=== PATIENT | male | born 1960 | race Caucasian/White ===

== ENCOUNTER 2017-07-13 00:30 | Day surgery (SDC) | payer MEDICARE, OTHER ==
[2014-05-23 08:38] VITALS: Ht 167.6 cm; Wt 94.8 kg
[~2017-07-13] VITALS: Ht 167.6 cm; Wt 94.8 kg
[~2017-07-13 00:30] MED LIST: ASCO-191 PO; ASPI-1471 PO; ATOR20TA22 PO; BIS10S PR; CALC1TAB58 PO; CLON-1 PO; DEXL60CA6 PO; DULO60CA51 PO; ENO40I SQ; FISH1CAP15 PO; HYDR-318 PO; IBUP200C74 PO; IBUP800T37 PO; LISI20TA29 PO; LORA-733 PO; LORA-802 PO; METXL50 PO; MOM PO; MONT10TA PO; MULT-1335 PO; OMEP1CAP27 PO; OMEP40CA48 PO; PER PO; POTA2.5T7 PO; TRIA-20 PO; VALS320T12 PO
--- NOTE | 2017-07-13 10:19 | HISTORY AND PHYSICAL ---
DATE OF ADMISSION: July 13, 2017 IDENTIFICATION/CHIEF COMPLAINT Eddy is a 57-year-old gentleman with a chief complaint of right shoulder injury. HISTORY OF PRESENT ILLNESS The patient stumbled and fell through drywall and injured his right shoulder, sustaining complete dislocation requiring emergency room reduction. He has pseudoparalysis to the arm related to a massive cuff tear. Surgery is indicated to relieve pain, promote stability and restored function. PAST MEDICAL HISTORY Notable for history of coronary artery disease, irregular heartbeat, hypertension, acid reflux disease. PAST SURGICAL HISTORY Notable for a couple of sinus operations, shoulder and hip replacement. ALLERGIES No known drug allergies. He has hayfever. CURRENT MEDICATIONS * Metoprolol 25 p.o. q.day. * Lisinopril one per day. * Triamterene hydrochlorothiazide one per day. * Aspirin 81 mg p.o. q.day. * Lipitor 20 mg p.o. q.day. * Omeprazole 40 mg p.o. q.day. * Clonazepam 1 mg at bedtime as needed. FAMILY HISTORY Notable for hypertension in father, coronary artery disease in mother, and rheumatoid arthritis in father. SOCIAL HISTORY Negative for tobacco use. He drinks about a six-pack of beer per week per his report, denies abuse. REVIEW OF SYSTEMS Negative. PHYSICAL EXAMINATION GENERAL: This is a well-developed, well-nourished male who appears stated age. HEENT: Normocephalic, atraumatic. NECK: Supple. LUNGS: Clear. HEART: Regular. ABDOMEN: Soft. ORTHOPEDIC EXAM: Eddy has no active forward elevation or abduction of his shoulder. He has significant external rotation lag sign. He is weak in all directions. Sensibility is altered on the posterior aspect of the deltoid and somewhat into the axillary nerve distribution. Distal neurologic function is intact. He can activate or fire his anterior middle and posterior deltoid, but again with no antigravity elevation. His passive motion is reasonable. RADIOGRAPHIC DATA Radiographs demonstrate subcoracoid dislocation with satisfactory reduction. MRI demonstrates a massive cuff tear involving the supraspinatus and infraspinatus with retraction and his biceps torn. He has probable full thickness subscap tear as well. ASSESSMENT Right shoulder acute versus acute on chronic rotator cuff tear with pseudoparalysis of the shoulder. PLAN I do not think this has any reasonable change of responding to conservative care , and he has made limited improvement over the several weeks since his injury. I have recommended arthroscopic and possibly open repair of this cuff. Nature of the procedure, risks, benefits, the anticipated rehab course were reviewed. Risks include but not are limited to , major medical or anesthetic complication, infection, neurovascular injury, blood transfusion, stiffness, scarring, retear, persistent or recurrent pain, weakness or limitation of function, need for additional surgery and other unforeseen. He understands and wishes to proceed. Signed permit is placed in the chart. No guarantees are given or implied. MARIS
[2017-07-13] MEDS ORDERED: ROPIVACAINE 0.2% 20 ML VIAL ONE (14:48)
[2017-07-13] MEDS ORDERED: METOPROLOL TART 5 MG/5 ML VIAL IVP ONE (14:55)
[2017-07-13 15:00] VITALS: BP 170/107
[2017-07-13] MEDS ORDERED: DEXAMETHASONE SOD PHOS 10MG/ML ONE (15:03)
[2017-07-13] MEDS ORDERED: ONDANSETRON 4 MG/2 ML VIAL ONE (15:03)
[2017-07-13] MEDS ORDERED: PROPOFOL EMUL(*) 10MG/ML 20 ML 40 ML ONE (15:03)
[2017-07-13] MEDS ORDERED: ROPIVACAINE 0.5% 20 ML VIAL ONE (15:06)
[2017-07-13] MEDS ORDERED: ceFAZolin(*) 2GM/D5W 50ML 50 ML IVPB ONE (15:30)
[2017-07-13] MEDS ORDERED: NORMOSOL R SOLN(*) 1000 ML BAG 1,000 ML IV PRN (15:30)
[2017-07-13] MEDS ORDERED: MIDAZOLAM 2 MG/2 ML VIAL ONE (15:30)
[2017-07-13] MEDS ORDERED: CELECOXIB 200 MG CAP PO ONE (15:30)
[2017-07-13] MEDS ORDERED: MIDAZOLAM 2 MG/2 ML VIAL IVP PRN (15:30)
[2017-07-13] MEDS ORDERED: LIDOCAINE/SOD BICARB 8.4% SYR ID ONE (15:30)
[2017-07-13] MEDS ORDERED: SUCCINYLCHOL CHL 200MG/10ML VL ONE (16:00)
[2017-07-13] MEDS ORDERED: ROCURONIUM BROM 10 MG/ML 10 ML ONE (16:00)
[2017-07-13] MEDS ORDERED: LABETALOL HCL 100 MG/20ML VIAL ONE (16:16)
[2017-07-13] MEDS ORDERED: fentaNYL CITR 100 MCG/2 ML AMP ONE ×2 (17:36→20:04)
[2017-07-13] MEDS ORDERED: METOPROLOL TART 5 MG/5 ML VIAL ONE ×2 (17:40→18:11)
[2017-07-13] MEDS ORDERED: LIDOCAINE MPF 1% 5 ML VIAL ONE (18:12)
[2017-07-13] MEDS ORDERED: SUGAMMADEX SOD 200 MG/2 ML SDV ONE (19:07)
[2017-07-13] MEDS ORDERED: ESMOLOL 10 MG/ML 10ML SDV ONE (19:07)
[2017-07-13] MEDS ORDERED: OXYC-865 PO (19:46)
[2017-07-13] MEDS ORDERED: KETOROLAC 30 MG/ML VIAL ONE (19:54)
[2017-07-13] MEDS ORDERED: oxyCODONE/ACETAMIN 5/325MG TH 2 TAB/BOTTLE PO ONE (20:15)
[2017-07-13 20:20] VITALS: BP 134/78
[2017-07-13 20:30] VITALS: BP 125/84
[2017-07-13 20:49] VITALS: BP 119/84
[2017-07-13 20:50] VITALS: BP 125/79
[2017-07-13] MEDS ORDERED: oxyCODONE/ACETAMIN 5/325MG TH 2 TAB/BOTTLE ONE (21:19)
--- NOTE | 2017-07-14 21:51 | OPERATIVE REPORT 1 ---
EVENT DATE: July 13, 2017 SURGEON: Bandar Larry MD ANESTHESIOLOGIST: Seven Bah MD ANESTHESIA: Scalene block, followed by general anesthesia. PREOPERATIVE DIAGNOSES 1. Right shoulder rotator cuff massive tear status post anterior dislocation. 2. Long-head biceps rupture. POSTOPERATIVE DIAGNOSES 1. Right shoulder rotator cuff massive tear status post anterior dislocation. 2. Long-head biceps rupture. PROCEDURES PERFORMED 1. Right shoulder arthroscopic repair of massive posterosuperior rotator cuff tear. 2. Extensive debridement including synovium, labrum, biceps remnant. 3. Subacromial decompression with acromioplasty. 4. Open repair of subscapularis, -22 modifier. INDICATIONS Eddy is a 57-year-old gentleman. He fell through drywall, sustaining an anterior dislocation. He has pseudi-paralysis his arm. MRI evidence of massive cuff tear. Surgery is indicated in an attempt to restore function, relieve pain, and improve his ability to use the arm. DESCRIPTION OF PROCEDURE Patient was taken to the operating room and placed supine on the operating table. Scalene block was administered by the anesthesiologist. General anesthesia was induced. Antibiotics were administered IV. Patient was positioned in the left lateral decubitus on a well-padded crow bag. All bony prominences, superficial nerves were well padded. Right shoulder girdle and upper extremity were prepped and draped in the usual sterile fashion for shoulder arthroscopy. The arm was suspended in STaR Sleeve traction. Standard posterior portals were created with the blunt trocar. Arthroscopic cannula was centered in the joint. Lactated Ringer's was used for preparation into his sheath. The Veress needle was placed outside to the rotator interval. Diagnostic arthroscopy was performed. There was rupture of the anteroinferior capsule and some labral tearing and fraying. This was debrided with a shaver. The long head of the biceps is ruptured. The stump is debrided with a shaver. The subscapularis is torn. The leading edge is dissected free of scar and tagged with multiple stitches with a Scorpion needle to facilitate identification and mobilization. This does not mobilize easily. Viewing antierior to posterior confirms the above findings. No additional findings are noted. The glenohumeral articular surfaces are generally in good condition. The scope is redirected. Subacromial lateral working portal is established. A very careful, meticulous dissection is performed to remove bursal leaders and early forming scar tissue from the intact cuff. Cuff is tagged whenever to identify and mobilize progressively by pulling on the traction stitches and dissecting free of scar and developing the interval between the labrum and the rotator cuff. In this fashion, the entire posterosuperior cuff is mobilized. The footprint is debrided over the surface down to a margi, and then a anuradha is used to freshen this down to punctate bleeding bone. Three medial row anchors are placed. These are 5.5 [place]al[place]. Sutures are passed to a depth of 1.5 cm through the leading edge of the cuff from posterior to anterior at the appropriate interval using horizontal mattress configuration. After all sutures are passed, these are tagged with SMC knots back to the three reverse posterior alternating half-hitches. Suture limbs are left long. These are then brought over to two 5.5 lateral row Daniels and Nephew anchors using a diamondback configuration, crisscrossing over the tendon to create a transosseous equivalent one row repair. A nice, tension-free rotator repair is achieved down to bone. Next, an attempt is made arthroscopically to dissect free the subscapularis; however, this is not mobilizing easily. There is significant swelling at this point in the case, and due to the critical nature of the subscapularis repair, I felt the patient is best served with open repair to assure satisfactory repair of the subscapularis. The most anterior incision is extended distally toward the axilla. Dissection is carried down through the subcutaneous tissue, and the deltopectoral interval is identified. Blunt dissection is performed, taking the cephalic vein laterally with the deltoid. A gloved finger is introduced to break up bursal adhesions and open up this interval beneath the coracoid. Leon retractor is placed. The previously placed tagged stitches in the subscapularis are identified, brought out through the wound, and used along with a Baker to mobilize the subscapularis. A Baker was placed between the subscapularis and the labrum anteriorly. A gloved finger was used to dissect down anteriorly, taking care to avoid injury to the axillary neurovascular bundle. Two medial row anchors are placed at the margin of the lesser tuberosity footprint after freshening this down to bleeding bone with a rongeur. Sutures are passed with the Scorpion in a horizontal mattress configuration from superior to inferior along the course of the tendon at a depth of about 1.2 to 1.5 cm. After passing all sutures, these were tied ____( 272) SMC knots backed up with three reverse posterolateral alternating half- hitches. The suture limbs were left long. One limb of each pair was then brought to a transosseous equivalent double row repair, anchor placed in the biceps groove. This was 5.5 Daniels and Nephew lateral row anchor. Sutures were tensioned, compressed in the subscapularis, and transosseous equivalent double row repair technique, and then the suture anchors deployed. All remaining suture limbs were trimmed. Wound is copiously lavaged. Hemostasis assured. I should note prior to proceeding with the open procedure, some spurs in the undersurface of the acromion are debrided to create space. Formal release of the CA is not performed, just a smoothing procedure on the undersurface of the acromion. At the completion of the procedure, wound is copiously lavaged. The deltopectoral interval is allowed to fold back together. The cephalic vein is in good condition. Derm is closed with 3-0 Vicryl. Skin is closed 4-0 Monocryl. Xeroform and 4 x 4's applied for a dry, sterile dressing. The patient is placed in an UltraSling. Plan is for massive cuff repair rehab protocol. We are going to go six weeks of phase 1, wean from the sling at eight, no strengthening until three months postop. Unrestricted use of the arm is anticipated in six months postop. [facility]
== END 2017-07-13 20:20 | disposition home or self-care (01) ==
LOC: OR 00:30
PROVIDERS: ATTEND Orthopaedic Surgery
DX: M75.121 Complete rotator cuff tear or rupture of right shoulder, not specified as traumatic (principal); S46.211A Strain of muscle, fascia and tendon of other parts of biceps, right arm, initial encounter
CPT/HCPCS: 29826; 29827; 76942; A9270; C1713; J0330; J1100; J1885; J2001; J2250; J2405; J2704; J2795; J3010; J3490; L3670; J0690

== ENCOUNTER 2018-05-03 01:43 | Observation (INO) | payer MEDICARE, OTHER ==
--- NOTE | 2018-04-26 11:32 | NUR ---
PT VERY CONCERNED ABOUT BEING ABLE TO GET HERE FOR SURGERY, PT STATED "STILL TRYING TO FIGURE EVERYTHING OUT, NOT SURE I WILL BE ABLE TO MAKE IT". INFORMED PT THAT HE WILL STAY ON THE DATE SCHEDULED, AND TO LET US KNOW SOON POSSIBLE IF HE WILL NEED TO RESCHEDULE. PT STATED UNDERSTANDING.
[2018-05-02 13:10] LABS: INR 0.92
--- NOTE | 2018-05-02 14:15 | HISTORY AND PHYSICAL ---
DATE OF PREOP: May 03, 2018 IDENTIFICATION/CHIEF COMPLAINT Eddy is a 56-year old gentleman with a chief complaint of right knee pain. HISTORY OF PRESENT ILLNESS Patient has a longstanding history of knee arthritis, progressively painful and debilitating and refractory to conservative care. Surgery is indicated to relieve symptoms after failure of nonoperative measures. PAST MEDICAL HISTORY * History of heart disease, * Irregular heartbeat. * Hypertension. * Remote history of bronchitis. * Hypercholesterolemia. * Acid reflux disease. PAST SURGICAL HISTORY * Prior right knee ACL surgery. * Multiple clean-up scopes in the right knee. * Left hip replacement. * Shoulder replacement. * Rotator cuff repair. ALLERGIES No known drug allergies. He does have hay fever. CURRENT MEDICATIONS * Metoprolol 50 mg p.o. every day. * Lisinopril 1 tablet p.o. every day. * Triamterene. * Hydrochlorothiazide1 p.o. every day. * Aspirin 81 mg p.o. every day. * Lipitor 20 mg p.o. every day. * Omeprazole 40 mg p.o. every day. * Flecainide 100 mg p.o. p.r.n. * Flonase p.r.n. FAMILY HISTORY Notable for father with arthritis and hypertension, mother with heart disease. SOCIAL HISTORY Negative for rare cigarette smoking. He drinks beer occasionally, denies abuse. REVIEW OF SYSTEMS Negative. PHYSICAL EXAMINATION GENERAL: Well-developed, well-nourished male who appears his stated age. HEENT: Normocephalic, atraumatic. NECK: Supple. LUNGS: Clear. ABDOMEN: Soft . ORTHOPEDIC EXAMINATION Right knee has well-healed surgical scars consistent with his prior surgery. He has a small effusion. He is stiff at the end range. He has a small flexion contracture. His extensor function is intact. His knee is ligamentously grossly stable. Calves are nontender. Neurovascular function is intact. RADIOLOGY Radiographs demonstrate end-stage DJD. ASSESSMENT Right knee end-stage degenerative joint disease, progressively painful and debilitating and refractory to conservative care. PLAN Per patient request, we will proceed with total knee arthroplasty. The nature of this procedure, risks and benefits, nonoperative alternatives and anticipated rehab course were described. Risks of the procedure include, but are not limited to, , major medical or anesthetic complications, infection, neurovascular, blood transfusions, stiffness, scarring, fracture, tendon rupture, instability, implant loosening, migration or failure, persistent or recurrent pain, need for additional surgery and other unforeseen. He understands and wishes to proceed. Signed permits are placed in the chart. No guarantees given or implied. MARIS
--- NOTE | 2018-05-02 16:05 | RADIOLOGY IMAGING REPORT ---
FACILITY: [facility] PATIENT NAME: Enrike Luevano : 1960 MR: [id number] V: [id number] EXAM DATE: ORDERING PHYSICIAN: ENRIKE WHITLOCK TECHNOLOGIST: Location: [facility] Patient: Enrike Luevano : 1960 Visit/Account:[id number] Date of Sevice: 05/02/2018 Exam type: KNEE 3 VIEW RIGHT History: PREOP RIGHT TOTAL KNEE Comparison: None. Findings: There is severe narrowing of the lateral compartment of the right knee moderate narrowing of the medi al compartment and moderate severe narrowing of patellofemoral compartment. There are postsurgical c hanges from a prior ACL repair. There are numerous loose bodies seen within the right knee joint. IMPRESSION: 1. Severe osteoarthritic changes of the right knee Report Dictated By: Gisela Reyes MD at 05/02/2018 3:57 PM Report E-Signed By: Gisela Reyes MD at 05/02/2018 4:00 PM [id number]
[2018-05-03] VITALS (12 sets, daily range): BP systolic 94–123; BP diastolic 33–82; Ht 170.2 cm; Wt 94.8 kg
[~2018-05-03] VITALS: Ht 170.2 cm; Wt 94.8 kg
[~2018-05-03 01:43] MED LIST changes: +FLE100 PO; +FLUT16SP19 NS; +MULT-27 PO; +OMEG-23 PO; +OXYC-865 PO
[2018-05-03] MEDS ORDERED: VANCOMYCIN 1 GM VIAL ONE (07:02)
[2018-05-03] MEDS ORDERED: TRANEXAMIC AC 1000 MG/10ML SDV 1,000 MG in DEXTROSE 5% 50 ML BAG 50 ML IV ONE (07:30)
[2018-05-03] MEDS ORDERED: ceFAZolin(*) 2GM/D5W 50ML 50 ML IVPB ONE (07:30)
[2018-05-03] MEDS ORDERED: LIDOCAINE/SOD BICARB 8.4% SYR ID ONE (07:30)
[2018-05-03] MEDS ORDERED: CELECOXIB 200 MG CAP PO ONE (07:30)
[2018-05-03] MEDS ORDERED: PREGABALIN 150 MG CAPSULE PO ONE (07:30)
[2018-05-03] MEDS ORDERED: NORMOSOL R SOLN(*) 1000 ML BAG 1,000 ML IV PRN ×2 (07:30→12:15)
[2018-05-03] MEDS ORDERED: ACETAMINOPHEN 500 MG TAB PO ONE (07:30)
[2018-05-03] MEDS ORDERED: MIDAZOLAM 2 MG/2 ML VIAL IVP PRN (07:30)
[2018-05-03] MEDS ORDERED: ROPIVACAINE/EPI/CLONIDINE/KET 50 ML SYRINGE INJ ONE (07:30)
[2018-05-03] MEDS ORDERED: LIDOCAINE MPF 1% 5 ML VIAL ONE (08:17)
[2018-05-03] MEDS ORDERED: ONDANSETRON 4 MG/2 ML VIAL ONE (08:17)
[2018-05-03] MEDS ORDERED: fentaNYL CITR 100 MCG/2 ML AMP ONE (08:17)
[2018-05-03] MEDS ORDERED: KETAMINE HCL-NS 50 MG/5 ML SYR ONE (08:17)
[2018-05-03] MEDS ORDERED: PROPOFOL EMUL(*) 10MG/ML 20 ML 20 ML ONE (08:17)
[2018-05-03] MEDS ORDERED: DEXAMETHASONE SOD 4 MG/ML VIAL ONE (08:17)
[2018-05-03] MEDS ORDERED: ePHEDrine 25 MG/5 ML DISP.SYR IVP ONE (09:41)
[2018-05-03] MEDS ORDERED: LACTATED RINGER 3000 ML BAG IR ONE (10:11)
[2018-05-03] MEDS ORDERED: FLUSH 10 ML SYR IVP PRN (12:15)
[2018-05-03] MEDS ORDERED: ACETAMINOPHEN 325 MG TAB PO PRN (12:15)
[2018-05-03] MEDS ORDERED: diphenhydrAMINE 50 MG/ML VIAL IVP PRN (12:15)
[2018-05-03] MEDS ORDERED: ZOLPIDEM TARTRATE 5 MG TAB PO PRN (12:15)
[2018-05-03] MEDS ORDERED: BENZOCAINE/MENTHOL 1 EACH LOZG PO PRN (12:15)
[2018-05-03] MEDS ORDERED: PROMETHAZINE 25 MG/ML 1 ML AMP IVP PRN (12:15)
[2018-05-03] MEDS ORDERED: BISACODYL 10 MG SUPP PR PRN (12:15)
[2018-05-03] MEDS ORDERED: FLUTICASONE PROP 0.05% 16 GM PRN (13:55)
[2018-05-03] MEDS ORDERED: FLECAINIDE ACETATE 100 MG TAB PO PRN (13:55)
--- NOTE | 2018-05-03 14:03 | Hospitalist Consultation ---
History of Present Illness Requesting Physician Dr. Larry Reason for Consult Medical Management Chief Complaint s/p right total knee replacement History of Present Illness He was admitted s/p right total knee replacement. It is reported the surgery went well and without complication. History Problems: (1) PAROXYSMAL ATRIAL FIBRILLATION Status: Chronic (2) HTN (hypertension) Status: Chronic (3) GERD (gastroesophageal reflux disease) Status: Chronic (4) Anxiety Status: Chronic Home Meds Reported Medications Fluticasone Prop 50 Mcg Ns (FLONASE 50 MCG NS) 16 Gm [place].susp, 2 SPRAYS NS QDAY PRN for CONGESTION, BOT 04/26/18 Flecainide Acetate (FLECAINIDE ACETATE) 100 Mg Tab, 100 MG PO DAILY PRN for IRREGULAR HEARTRATE, TAB 04/26/18 Mu-Vits-Min Th/Lycopene/Lutein (CENTRUM SILVER TABLET) 1 Each Tablet, 1 EACH PO DAILY 04/26/18 Coamo-3 Fatty Acids/Fish Oil (FISH OIL 1,000 MG SOFTGEL) 1 Each Capsule, 1 EACH PO DAILY, CAPSULE 04/26/18 Ibuprofen (IBUPROFEN) 800 Mg Tablet, 1 TAB PO Q8H PRN for PAIN, TAB 07/12/17 Omeprazole (OMEPRAZOLE) 40 Mg Capsule.dr, 40 MG PO QDAY, CAP 07/12/17 Atorvastatin Calcium (LIPITOR) 20 Mg Tablet, 1 TAB PO QDAY, TAB 07/12/17 Aspirin (ASPIR 81) 81 Mg Tablet.dr, 81 MG PO QHS, TAB 07/12/17 Calcium Carb & Cit/Vitamin D3 (CALCIUM + VITAMIN D3 CAPLET) 1 Each Tablet.er, 1 EACH PO DAILY 05/16/14 Clonazepam (KLONOPIN) 1 Mg Tablet, 1 MG PO DAILY 05/16/14 Lisinopril (LISINOPRIL) 20 Mg Tablet, 20 MG PO QDAY, TAB 05/16/14 Triamterene/Hydrochlorothiazid (Triamterene/Hctz 37.5/25 Tb) 1 Each Tablet, 1 EACH PO DAILY, 0 Refills 03/20/11 Metoprolol Succinate (Toprol Xl) 50 Mg Tabcr, 50 MG PO QDAY, 0 Refills 03/20/11 Discontinued Reported Medications Oxycodone Hcl/Acetaminophen (PERCOCET 5-325 MG TABLET) 1 Each Tablet, 1-2 EACH PO Q4-6H PRN for PAIN, #50 TAB 0 Refills 07/13/17 Montelukast Sodium (SINGULAIR) 10 Mg Tablet, 1 TAB PO QDAY, TAB 07/12/17 Ascorbic Acid (VITAMIN C) 1,000 Mg Tablet, 1000 MG PO DAILY 05/16/14 Fish Oil/Dha/Epa (FISH OIL 1,200 MG FISH OIL) 1 Each Capsule, 1 EACH PO DAILY, CAPSULE 05/16/14 Allergies: Coded Allergies: hydrocodone (Verified Adverse Reaction, Mild, ITCHING, 07/12/17) Uncoded Allergies: HAYFEVER (Allergy, Unknown, UNKNOWN, 09/09/11) Patient History: FH: arthritis FATHER FH: heart disease MOTHER FH: hypertension FATHER Hx Smoking: Yes (SOCIAL SMOKER) Smoking Status: Current: Some Days Smoker Caffeine Intake: Coffee Caffeine/Cups Per Day: 2 CUPS PER DAY Hx Alcohol Use: Yes Alcohol Used: Beer Hx Substance Use Disorder: No Social Drug Use: Occasional Social Drugs: Marijuana Review of Systems All Systems Reviewed/Normal: Yes, Except as Noted Exam Vital Signs Vital Signs Date Time Temp Pulse Resp B/P (MAP) Pulse Ox O2 Delivery O2 Flow Rate FiO2 05/03/18 13:22 98.0 79 16 110/74 (86) 94 Nasal Cannula 2.0 General Appearance: Alert, Awake, No Acute Distress, Afebrile Neuro: No Gross deficits Cardiovascular: Regular Rate and Rhythm Respiratory: No Respiratory Distress, Clear to Auscultation Psych: Alert & Oriented X3, Appropriate Mood & Affect Assessment and Plan Problems: (1) Status post total right knee replacement Status: Acute Assessment & Plan: Followed by Dr. Larry. He will be placed on Aspirin for DVT prophylaxis. He has no history of DVT or PE. (2) HTN (hypertension) Status: Chronic Assessment & Plan: He is on chronic treatment with Lisinopril, Metoprolol, and Triamterene/ HCTZ. The Metoprolol and Lisinopril have been restarted with hold parameters. (3) GERD (gastroesophageal reflux disease) Status: Chronic Assessment & Plan: He is on chronic treatment with Omeprazole. He will receive Protonix during admission. (4) Anxiety Status: Chronic Assessment & Plan: He is on chronic treatment with Clonazepam. This will be held while receiving Valium. (5) PAROXYSMAL ATRIAL FIBRILLATION Status: Chronic Assessment & Plan: He does take Flecainide as needed for palpitations. He reports he does not use this often. (6) CAD (coronary artery disease) Status: Chronic Assessment & Plan: He is on chronic treatment with baby aspirin. This will be held while receiving full strength ASA. Venous Thromboembolism Antithrombotics Is Pt On Any Antithrombotics?: No Problem Qualifiers (1) HTN (hypertension): Hypertension type: essential hypertension Qualified Codes: I10 - Essential (primary) hypertension SOREN JOHNSON May 03, 2018 14:03
--- NOTE | 2018-05-03 14:18 | RADIOLOGY IMAGING REPORT ---
[place] [facility] [place] NAME: Enrike Luevano : 1960 MR: [id number] V: [id number] EXAM DATE: ORDERING PHYSICIAN: ENRIKE WHITLOCK TECHNOLOGIST: Location: [facility] - [place], [place] Patient: Enrike Luevano : 1960 Visit/Account:[id number] Date of Sevice: 05/03/2018 KNEE LIMITED RIGHT HISTORY: POST OP RIGHT TKA Additional history: None COMPARISON: Comparison made to preoperative study which demonstrates a advanced right knee arthrosis . FINDINGS: Interval total right knee arthroplasty. Orthopedic hardware unremarkable. Joint space reconstituted data. Normal anatomic alignment. Iatrogenic air seen in the joint. IMPRESSION: Status post right total knee arthroplasty unremarkable in appearance. Report Dictated By: Charles Rene MD at 05/03/2018 2:11 PM Report E-Signed By: Charles Rene MD at 05/03/2018 2:14 PM WSN:[email or web address]
--- NOTE | 2018-05-03 14:32 | OPERATIVE REPORT 1 ---
EVENT DATE: May 03, 2018 SURGEON: Bandar Larry MD ANESTHESIOLOGIST: David Caba MD ANESTHESIA: General plus spinal. TRAFFIC OFFICER: David Cervantes PA-C PREOPERATIVE DIAGNOSIS Right knee degenerative joint disease. POSTOPERATIVE DIAGNOSIS Right knee degenerative joint disease. PROCEDURE PERFORMED Right total knee arthroplasty. ESTIMATED BLOOD LOSS Minimal. DRAINS None. SPECIMENS None. COMPLICATIONS None apparent. TOURNIQUET TIME 77 minutes. IMPLANTS USED [place] Tri[employer] knee system, a 4 RIGHT PS femur, a 5 standard tibial baseplate, a 36 mm universal symmetric all polyethylene patella button, 13 mm PS tibial tray. INDICATIONS Bandar is a 58-year-old gentleman status post remote ACL reconstruction and additional operations who has severe posttraumatic arthritis progressively painful, debilitating and refractory to conservative measures. Surgery is indicated to relieve symptoms after failure of nonoperative measures. DESCRIPTION OF PROCEDURE The patient was taken to the operating room and placed supine on the operating table. General anesthesia was induced. Spinal block was administered by the anesthesiologist. Antibiotics and TXA were administered IV. The right lower extremity was prepped and draped in the usual sterile fashion for knee arthroplasty. The limb was exsanguinated with an Esmarch bandage. The tourniquet was inflated to 250 mmHg. The old anterior curvilinear medial parapatellar incision is opened and extended a bit proximally. Dissection is carried down through the skin and scar tissue to the extensor mechanism. Full thickness dissection is carried far enough to allow medial parapatellar arthrotomy be performed. This knee is extremely stiff and scarred in anteriorly. Simple eversion of the patella is difficult so the fat pad is dissected away and additional spur removed on the lateral aspect of the patella and eventually the patella can be everted and the knee flexed safely without jeopardizing the extensor mechanism. The subperiosteal tissue is released on the medial aspect to start balancing just around the capsule for 1 cm. This was carried around on the lateral side as well. Subsequently, step-drill was used to enter the distal femur. Alignment guide was used to engage the isthmus. Cut set for 5 degrees valgus over the anatomic axis. 10 mm resection block was applied and pinned. Cut was made with an oscillating saw. The AP sizing guide was applied to the distal femoral cut and positioned for 3 degrees of rotation relative to the posterior condyles. 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 Therefore, transepicondylar axis is brought forward over the Yayo's line and this is used for making the drill holes for the sizing guide to assure the component is not internally rotated. The size 4 was optimal without risk of notching. Four-in-one cutting block was applied. Anterior, posterior, posterior chamfer and anterior chamfer cuts were made respectively. A PS block was applied and centered mediolateral and the bone was removed from the box. The trial femur has nice [id number] fit. Attention was turned to tibial preparation. The extramedullary guide was applied and positioned for varus, valgus, posterior slope and rotation. This was set to resect 10 mm from the laterally deficit lateral tibial plateau, strapped down another millimeter or so to assure an adequate cut. Block is pinned, extramedullary check was made and the cut was made with an oscillating saw. Additional osteophytes are removed along with scar and the popliteus is recessed and the IT band released off the greatest tubercle subperiosteally to balance the gaps. The size 5 tibial baseplate provides optimal bony coverage without soft tissue overhang. This was inserted along with the trial liner and the trial femur. The knee was brought to full extension. The patella was taken from a starting thickness of 22 to a residual of 14 with a patellar clamp and oscillating saw. A 36 provides optimal bony coverage without soft tissue overhang. The lug holes were drilled. The patella tracts nicely with a no-touch technique. Final tibial preparation consisted of ensuring appropriate rotational and translational position of the component. The fin is punched. At the lower portion of the fine, one of the fixation adonay in the tibia is encountered. Rather than dissect into his extensor mechanism, as these are buried near the tibial tubercle, I thought it would be safer and better just to go ahead and advance the punch to attempt to better deflect the staple time and this is successful at brining this down flush. Subsequently, sclerotic bone is drilled and a mix of polymethylmethacrylate was made after copious lavage and components were cemented in a single stage. The cement was fully polymerized, the tourniquet was deflated and meticulous hemostasis was assured. The 13 PS tibial tray liner fills up the gap ideally, allowing the knee to drop to full extension without hyperextension for optimal subcutaneous tissue tension and stability. The tray was lavaged and dried and the actual liner was locked into the baseplate. The joint was reduced and the arthrotomy was closed in flexion with #2 Ethibond, subcutaneous with 3-0 Vicryl and the skin with surgical adonay. Xeroform was applied followed by a dry, sterile dressing and a compression wrap. The patient was awakened from the anesthesia and taken to the recovery room in stable condition, having tolerated the procedure well. Plan for postoperative rehab is standard TKA rehab protocol. MARIS
[2018-05-03] MEDS: MORPHINE 2 MG/ML SYR IVP PRN ×5 (15:16→21:53)
[2018-05-03] MEDS ORDERED: NS(*) 0.9% 250 ML BAG 250 ML ONE (16:39)
[2018-05-03] MEDS: ceFAZolin(*) 1 GM VIAL 1 GM in NS(*) 0.9% 100 ML ADDVANT BAG 100 ML IVPB SCH (16:40)
[2018-05-03] MEDS: CELECOXIB 200 MG CAP PO SCH (17:28)
[2018-05-03] MEDS: DIAZEPAM 5 MG TAB PO PRN (20:17)
[2018-05-04 01:22] VITALS: BP 113/73
[2018-05-04] MEDS: ceFAZolin(*) 1 GM VIAL 1 GM in NS(*) 0.9% 100 ML ADDVANT BAG 100 ML IVPB SCH ×2 (01:22→08:30)
[2018-05-04] MEDS: DIAZEPAM 5 MG TAB PO PRN ×3 (02:38→17:28)
[2018-05-04 04:32] VITALS: BP 109/77
[2018-05-04] MEDS ORDERED: MORPHINE 2 MG/ML SYR IVP PRN (07:25)
[2018-05-04 07:40] VITALS: BP 119/78
[2018-05-04] MEDS: MAGNESIUM HYDROXIDE* 30ML UDCP PO PRN (07:53)
[2018-05-04] MEDS: METOPROLOL SUCC XL 50 MG TABCR 50 MG TAB.ER.24H PO SCH (08:31)
[2018-05-04] MEDS: LISINOPRIL 20 MG TAB PO SCH (08:31)
[2018-05-04] MEDS: ATORVASTATIN 10 MG TAB PO SCH (08:31)
[2018-05-04] MEDS: ASPIRIN 325 MG TAB PO SCH (08:31)
[2018-05-04] MEDS: CELECOXIB 200 MG CAP PO SCH ×2 (08:31→17:28)
[2018-05-04] MEDS: PANTOPRAZOLE SOD 40 MG TABEC PO SCH (08:31)
[2018-05-04] MEDS: MORPHINE 4 MG/ML SDV IVP PRN ×4 (08:31→20:10)
--- NOTE | 2018-05-04 11:01 | Hospitalist Progress Note ---
Subjective Progress Notes Subjective He has no complaints this morning. He had no acute events overnight. Patient Complains of: Cardiovascular: No: Chest Pain Respiratory: No: Shortness of Breath Physical Exam Vital Signs Date Time Temp Pulse Resp B/P (MAP) Pulse Ox O2 Delivery O2 Flow Rate FiO2 05/04/18 09:00 93 Nasal Cannula 1.5 05/04/18 07:40 97.8 69 18 119/78 (92) Intake and Output 05/04/18 07:00 Intake Total 9802 ml Balance 9802 ml Intake Oral 3690 ml IV Total 4112 ml Other 2000 ml # Voids 2 General Appearance: Alert, Awake, No Acute Distress, Afebrile Neuro: No Gross deficits Cardiovascular: Regular Rate and Rhythm Respiratory: No Respiratory Distress, Clear to Auscultation GI: Soft and Non-Tender Psych: Alert & Oriented X3, Appropriate Mood & Affect Assessment and Plan Problems: (1) Status post total right knee replacement Status: Acute Assessment & Plan: Followed by Dr. Larry. He will be placed on Aspirin for DVT prophylaxis. He has no history of DVT or PE. (2) HTN (hypertension) Status: Chronic Assessment & Plan: He is on chronic treatment with Lisinopril, Metoprolol, and Triamterene/ HCTZ. The Metoprolol and Lisinopril have been restarted with hold parameters. (3) GERD (gastroesophageal reflux disease) Status: Chronic Assessment & Plan: He is on chronic treatment with Omeprazole. He will receive Protonix during admission. (4) Anxiety Status: Chronic Assessment & Plan: He is on chronic treatment with Clonazepam. This will be held while receiving Valium. (5) PAROXYSMAL ATRIAL FIBRILLATION Status: Chronic Assessment & Plan: He does take Flecainide as needed for palpitations. He reports he does not use this often. (6) CAD (coronary artery disease) Status: Chronic Assessment & Plan: He is on chronic treatment with baby aspirin. This will be held while receiving full strength ASA. Exam Sepsis Risk: No Definite Risk Problem Qualifiers (1) HTN (hypertension): Hypertension type: essential hypertension Qualified Codes: I10 - Essential (primary) hypertension SOREN JOHNSON TILLER WORKER May 04, 2018 11:01
[2018-05-04 11:49] VITALS: BP 126/74
[2018-05-04 15:12] VITALS: BP 109/61
--- NOTE | 2018-05-04 16:04 | NUR ---
Physical Therapy Impression Pt is doing well functionally despite the reports of high pain levels. With cues to utilize L LE to assist with lifting his R LE OOB pt is able to do so independently. CGA sit <> stands and ambulation within the room. Good tolerance for weight bearing and slight knee flexion with swing phase of gait. Cont. with POC. Physical Therapy Goals 1: Pt to complete bed mobility with [place] 2: Pt to complete transfers with SBA with RW 3: Pt to ambulate 150' with SBA and RW 4: Pt to asc/desc 4 stairs with railing and SBA 5: Pt to be I) with CPM Patient's Goals
--- NOTE | 2018-05-04 16:13 | NUR ---
Physical Therapy Impression Pt is continuing to do well with mobility and does not complain about pain with therapy. Indep. bed mob. SBA sit <> stands and ambulation x 110' with FWW. Pt will be home without assistance after D/C from [facility] and would benefit from services to best optimize his safety and independence. Physical Therapy Goals 1: Pt to complete bed mobility with [place] 2: Pt to complete transfers with SBA with RW 3: Pt to ambulate 150' with SBA and RW 4: Pt to asc/desc 4 stairs with railing and SBA 5: Pt to be I) with CPM Patient's Goals
[2018-05-04 20:00] VITALS: BP 103/71
[2018-05-05] VITALS (7 sets, daily range): BP systolic 99–132; BP diastolic 67–84
[2018-05-05] MEDS: DIAZEPAM 5 MG TAB PO PRN ×2 (00:09→08:47)
[2018-05-05] MEDS: MORPHINE 4 MG/ML SDV IVP PRN (00:10)
[2018-05-05] MEDS: diphenhydrAMINE 25 MG CAP PO PRN ×2 (00:18→22:28)
[2018-05-05] MEDS: LISINOPRIL 20 MG TAB PO SCH (08:38)
[2018-05-05] MEDS: METOPROLOL SUCC XL 50 MG TABCR 50 MG TAB.ER.24H PO SCH (08:38)
[2018-05-05] MEDS ORDERED: PER PO (08:39)
[2018-05-05] MEDS ORDERED: DIA5 PO (08:42)
[2018-05-05] MEDS: PANTOPRAZOLE SOD 40 MG TABEC PO SCH (08:47)
[2018-05-05] MEDS: CELECOXIB 200 MG CAP PO SCH ×2 (08:48→17:15)
[2018-05-05] MEDS: ATORVASTATIN 10 MG TAB PO SCH (08:48)
[2018-05-05] MEDS: ASPIRIN 325 MG TAB PO SCH (08:48)
--- NOTE | 2018-05-05 12:00 | Hospitalist Progress Note ---
Subjective Progress Notes Subjective He was admitted after knee replacement. He has no complaints this morning. He had no acute events overnight. Patient Complains of: Cardiovascular: No: Chest Pain Respiratory: No: Shortness of Breath Physical Exam Vital Signs Date Time Temp Pulse Resp B/P (MAP) Pulse Ox O2 Delivery O2 Flow Rate FiO2 05/05/18 07:00 98.9 79 20 99/69 (79) 92 Room Air 05/05/18 04:29 0.5 Intake and Output 05/05/18 00:00 Intake Total 2231 ml Balance 2231 ml Intake Oral 1996 ml IV Total 235 ml # Voids 5 General Appearance: Alert, Awake, No Acute Distress, Afebrile Neuro: No Gross deficits Cardiovascular: Regular Rate and Rhythm Respiratory: No Respiratory Distress, Clear to Auscultation GI: Soft and Non-Tender Psych: Alert & Oriented X3, Appropriate Mood & Affect Assessment and Plan Problems: (1) Status post total right knee replacement Status: Acute Assessment & Plan: Followed by Dr. Larry. He will be placed on Aspirin for DVT prophylaxis. He has no history of DVT or PE. (2) HTN (hypertension) Status: Chronic Assessment & Plan: He is on chronic treatment with Lisinopril, Metoprolol, and Triamterene/ HCTZ. The Metoprolol and Lisinopril have been restarted with hold parameters. (3) GERD (gastroesophageal reflux disease) Status: Chronic Assessment & Plan: He is on chronic treatment with Omeprazole. He will receive Protonix during admission. (4) Anxiety Status: Chronic Assessment & Plan: He is on chronic treatment with Clonazepam. This will be held while receiving Valium. (5) PAROXYSMAL ATRIAL FIBRILLATION Status: Chronic Assessment & Plan: He does take Flecainide as needed for palpitations. He reports he does not use this often. (6) CAD (coronary artery disease) Status: Chronic Assessment & Plan: He is on chronic treatment with baby aspirin. This will be held while receiving full strength ASA. Exam Sepsis Risk: No Definite Risk Problem Qualifiers (1) HTN (hypertension): Hypertension type: essential hypertension Qualified Codes: I10 - Essential (primary) hypertension SOREN JOHNSON J[employer] MILL OPERATOR May 05, 2018 12:00
--- NOTE | 2018-05-05 14:58 | NUR ---
Physical Therapy Impression Pt is doing exceptionally well and has met all therapy goals. Pt is safe to D/C home with HH PT when medically appropriate. Pt on room air throughout, SpO2 in low 90's with activity. Notified nursing. Pt tolerated ambulation x 150' with standard walker and stairs with B handrails to simulate entry into pt's home. Pt is Mod I/I with all activities. Physical Therapy Goals 1: Pt to complete bed mobility with [place] 2: Pt to complete transfers with SBA with RW 3: Pt to ambulate 150' with SBA and RW 4: Pt to asc/desc 4 stairs with railing and SBA 5: Pt to be I) with CPM Patient's Goals
[2018-05-05] MEDS: MAGNESIUM HYDROXIDE* 30ML UDCP PO PRN (18:18)
[2018-05-06 03:43] VITALS: BP 121/75
[2018-05-06] MEDS: DIAZEPAM 5 MG TAB PO PRN (05:56)
[2018-05-06 06:52] VITALS: BP 138/86
[2018-05-06] MEDS: ATORVASTATIN 10 MG TAB PO SCH (08:22)
[2018-05-06] MEDS: LISINOPRIL 20 MG TAB PO SCH (08:22)
[2018-05-06] MEDS: PANTOPRAZOLE SOD 40 MG TABEC PO SCH (08:23)
[2018-05-06] MEDS: CELECOXIB 200 MG CAP PO SCH (08:23)
[2018-05-06] MEDS: METOPROLOL SUCC XL 50 MG TABCR 50 MG TAB.ER.24H PO SCH (08:23)
[2018-05-06] MEDS: ASPIRIN 325 MG TAB PO SCH (08:23)
[2018-05-06] MEDS ORDERED: ASPI-757 PO (08:41)
--- NOTE | 2018-05-06 10:34 | Hospitalist Progress Note ---
Subjective Progress Notes Subjective He was admitted after knee replacement. He had no acute events overnight. He would like to go home today. Patient Complains of: Cardiovascular: No: Chest Pain Respiratory: No: Shortness of Breath Physical Exam Vital Signs Date Time Temp Pulse Resp B/P (MAP) Pulse Ox O2 Delivery O2 Flow Rate FiO2 05/06/18 07:52 Room Air 05/06/18 07:29 91 05/06/18 06:52 98.3 81 16 138/86 (103) Intake and Output 05/06/18 07:00 Intake Total 900 ml Balance 900 ml Intake Oral 900 ml # Voids 3 # Bowel Movements 1 General Appearance: Alert, Awake, No Acute Distress, Afebrile Neuro: No Gross deficits Cardiovascular: Regular Rate and Rhythm Respiratory: No Respiratory Distress, Clear to Auscultation GI: Soft and Non-Tender Psych: Alert & Oriented X3, Appropriate Mood & Affect Assessment and Plan Problems: (1) Status post total right knee replacement Status: Acute Assessment & Plan: Followed by Dr. Larry. He will be placed on Aspirin for DVT prophylaxis. He has no history of DVT or PE. (2) HTN (hypertension) Status: Chronic Assessment & Plan: He is on chronic treatment with Lisinopril, Metoprolol, and Triamterene/ HCTZ. The Metoprolol and Lisinopril were restarted with hold parameters. (3) GERD (gastroesophageal reflux disease) Status: Chronic Assessment & Plan: He is on chronic treatment with Omeprazole. He will receive Protonix during admission. (4) Anxiety Status: Chronic Assessment & Plan: He is on chronic treatment with Clonazepam. This will be held while receiving Valium. (5) PAROXYSMAL ATRIAL FIBRILLATION Status: Chronic Assessment & Plan: He does take Flecainide as needed for palpitations. He reports he does not use this often. (6) CAD (coronary artery disease) Status: Chronic Assessment & Plan: He is on chronic treatment with baby aspirin. This will be held while receiving full strength ASA. Exam Sepsis Risk: No Definite Risk Problem Qualifiers (1) HTN (hypertension): Hypertension type: essential hypertension Qualified Codes: I10 - Essential (primary) hypertension SOREN JOHNSONP May 06, 2018 10:34
--- NOTE | 2018-05-18 03:35 | LEVENE DISCHARGE ---
DATE OF ADMISSION: May 03, 2018 DATE OF DISCHARGE: May 06, 2018 REASON FOR ADMISSION Patient with painful right knee arthritis was admitted for total knee arthroplasty. HOSPITAL COURSE The patient is taken to the operating room on the date of admission and undergoes uncomplicated right total knee arthroplasty. He receives antibiotics and anticoagulation per protocol. He is mobilized by Therapy per protocol and makes good progress. At the time of discharge, he is cleared by Therapy for safety and mobility. Wound condition is benign. He is comfortable on p.o. pain medications, voiding and stooling normally. DISPOSITION Discharged home. Follow up with Dr. Larry in the [facility] in one week. MEDICATIONS Percocet as needed for pain. Usual medications except as adjusted by the hospitalist. Aspirin 325 mg p.o. daily x1 month for DVT prophylaxis. DIET Ad george. CONDITION AT DISCHARGE Stable. INSTRUCTIONS Outpatient PT per protocol. Daily dry sterile dressing change. Okay to shower. No submerging the wound. Call immediately for fevers, chills, wound problems, uncontrolled pain, or other concerns. MARIS
== END 2018-05-06 09:29 | disposition home health service (06) ==
LOC: OR 01:43 → MED 13:15
PROVIDERS: ADMIT Orthopaedic Surgery; ATTEND Orthopaedic Surgery
DX: M17.31 Unilateral post-traumatic osteoarthritis, right knee (principal); I10 Essential (primary) hypertension; E78.5 Hyperlipidemia, unspecified; K21.9 Gastro-esophageal reflux disease without esophagitis; I48.0 Paroxysmal atrial fibrillation; F41.9 Anxiety disorder, unspecified; Z88.5 Allergy status to narcotic agent; I25.10 Atherosclerotic heart disease of native coronary artery without angina pectoris; F17.210 Nicotine dependence, cigarettes, uncomplicated; J44.9 Chronic obstructive pulmonary disease, unspecified
CPT/HCPCS: 27447; 73560; 73562; 85610; 86850; 86900; 86901; 97116; 97161; 97530; A9270; C1713; C1776; G0378; J0690; J1100; J2001; J2250; J2270; J2405; J2704; J3010; J3370; J3490; J7050; J7060; Q0163